=== PATIENT | female | born 1980 | race Caucasian/White ===

== ENCOUNTER 2016-08-14 06:00 | Inpatient (IN) ==
[2016-08-14] MEDS ORDERED: BUTORPHANOL 2 MG/ML VIAL IV PRN (06:08)
[2016-08-14] MEDS ORDERED: MEPERIDINE 50 MG/1 ML VIAL IV PRN (06:08)
[2016-08-14] MEDS ORDERED: ONDANSETRON 4 MG/2 ML VIAL IV PRN ×2 (06:08→12:51)
[2016-08-14] MEDS ORDERED: OXYTOCIN/LR 20 UNIT/1,000 ML BAG IV SCH (06:30)
[2016-08-14] MEDS: LACTATED RINGERS 1,000 ML IV SCH ×3 (06:30→20:05)
[2016-08-14 06:36] LABS: Basophils % 0.3 % (0.0-0.8); Eosinophils # 0.3 10*3/uL (0.0-0.87); Eosinophils % 2.6 % (0.00-10.9); Hemoglobin 12.9 GM/DL (12.0-16.0); Immature Granulocytes % 0.6 %; Immature Granulocytes Absolute 0.06 #; Lymphocytes # 2.3 10*3/uL (1.4-4.0); Lymphocytes % 24.3 % (21.3-54.2); Mean Corpuscular HGB Conc 34.9 GM/DL (32-36); Mean Corpuscular Hemoglobin 33 PG (27-34); Mean Corpuscular Volume 94.1 FL (87-102); Mean Platelet Volume 11.3 FL (9.6-12.0); Monocytes # 0.6 10*3/uL (0.11-0.8); Monocytes % 6.3 % (1.7-12.7); Neutrophils # 6.3 10*3/uL (1.4-7.4); Neutrophils % 65.9 % (38.7-73.9); Platelet Count 205 T/CUMM (130-400); Red Blood Count 3.93 MC/CUMM (3.8-5.5); Red Cell Distribution Width 13.1 % (9.3-17.3); White Blood Count 9.6 T/CUMM (4-12)
[2016-08-14 06:57] LABS: INR 0.9; PT Patient Result 9.6 SECS
[2016-08-14 07:10] LABS: Albumin 2.9 G/DL (3.4-5.0); Bilirubin,Total 0.6 MG/DL (0.2-1.0); Osmolality,Calculated 272.7 MOS/KG (273-304); Potassium 3.8 MMOL/L (3.5-5.1); Total Protein 6.5 G/DL (6.4-8.3)
[2016-08-14] MEDS ORDERED: LACTATED RINGERS 1,000 ML IV ONE (08:44)
[2016-08-14] MEDS ORDERED: CITRIC ACID/SODIUM CITRATE 30 ML UDCUP PO ONE (08:44)
[2016-08-14] MEDS ORDERED: FAMOTIDINE 20 MG/2 ML VIAL IV ONE (08:44)
[2016-08-14] MEDS ORDERED: hydrOXYzine HCL 25 MG/1 ML VIAL IM PRN (08:45)
[2016-08-14] MEDS ORDERED: ePHEDrine 50 MG/ML AMP IV PRN (08:45)
[2016-08-14] MEDS ORDERED: fentaNYL 2 MCG/ROPIV 0.2% EPID 150 ML EPIDURAL SCH (08:45)
[2016-08-14] MEDS ORDERED: diphenhydrAMINE 50 MG/1 ML VIAL IV PRN ×2 (08:45)
[2016-08-14] MEDS ORDERED: PROMETHAZINE 25 MG/1 ML VIAL IM ONE (08:45)
--- NOTE | 2016-08-14 09:22 | OB/GYN History & Physical ---
History of Present Illness Chief complaint: For elective induction due to term . History of present illness: Ms. Gruber is a 36 year old female 3 para 1 AB 1 living 1. Her SURENDRA is 08/20/2016 for an estimated gestational age of 39 weeks. The patient presents for elective induction of labor due to term . The risk and benefits of been thoroughly discussed with this patient and significant other and plan of care has been discussed with Dr. Ace and all parties are in agreement plan. The [facility] and she received routine care and her course was uneventful. The patient had a previous vaginal delivery of a liveborn female that weighed 6 pounds and 14 ounces the patient reported preeclampsia with that patient also hemorrhage with the IC and had to have multiple blood transfusions after that delivery. labs: She is B+, serology is nonreactive, hepatitis B negative, HIV negative, rubella is immune, GBS culture is negative. Review of systems is negative with exception of above. Home Medications Medication Instructions Recorded Confirmed Type Multivitamin () [ 1 tablet PO DAILY 08/16/15 08/14/16 History Vitamin] Allergies Allergy/AdvReac Type Severity Reaction Status Date / Time latex Allergy Severe rash sob Verified 08/03/16 12:43 Sulfa (Sulfonamide Allergy Intermediate HIVES Verified 08/03/16 12:43 Antibiotics) 12 point system: reviewed and no additional remarkable complaints except as stated Medical,Surgical,& Family Hx - Medical History Neurology: No history of: Seizures HEENT: History of: HEENT Problems (closed reduction nasal fracture) Reproductive: History of: Complication (missed , preeclampsia , dic, hemmorage) Other: History of: Anesthesia Reactions (n/v), Miscellaneous Medical Problems ( VARICOSE VEIN SURGERY) - Surgical History Reproductive Surgeries: Surgical HX of;: Dilation and Curettage Additional Surgical History: Vein stripping in 2005. 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 - Constitutional Vitals: Vital Signs Temp Pulse Resp BP Pulse Ox 05/30/17 08:00 98.6 F 08/14/16 06:06 97.4 F L 83 20 152/98 100 - Antepartum / Post Antepartum Exam Cervix -Dilatation: 5 cm Effacement: 70% Station: -2 Rupture: Intact Presentation: Vertex Heart Rate: 140s-150s Breast: bilateral: normal Abdomen obstetrics: Present: bowel sounds normal Vagina: Present: normal moisture, discharge Uterus exam: Present: enlarged - Head Head exam: Present: normal inspection - Respiratory Respiratory exam: Present: clear to auscultation bilaterally - Cardiovascular Cardiovascular exam: Present: regular rate and rhythm - GI/Abdominal GI/Abdominal exam: Present: normal bowel sounds, soft - Extremities Exam Extremities exam: Present: normal inspection - Back Exam Back exam: Present: normal inspection - Neurological Exam Neurological exam: Present: alert, oriented X3 - Psychiatric Psychiatric exam: Present: normal affect, normal mood - Skin Skin exam: Present: normal color, warm Assessment and Plan (1) Term Status: Acute Assessment and plan: Admit IV fluids IV Pitocin per protocol Artificial rupture membranes Internal monitors if indicated Epidural anesthesia Anticipate Current Visit: Yes Results - Labs CBC & BMP: 08/14/16 06:19 08/14/16 06:19
[2016-08-14] MEDS ORDERED: OXYTOCIN/LR 30 UNIT/1,000 ML BAG IV ONE (11:34)
[2016-08-14] MEDS ORDERED: OXYTOCIN/LR 20 UNIT/1,000 ML BAG IV ONE (12:51)
[2016-08-14] MEDS ORDERED: LANOLIN 50% CREAM 0.3 OZ TUBE TOP PRN (12:51)
[2016-08-14] MEDS ORDERED: HYDROCORTISONE 2.5% RECTAL CREAM 30 GM TUBE TOP PRN (12:51)
[2016-08-14] MEDS ORDERED: oxyCODONE/ACETAMINOPHEN 5-325 MG TABLET PO PRN (12:51)
[2016-08-14] MEDS ORDERED: DIPH/TET/ACEL PERT BOOSTER VACCINE 0.5 ML VIAL IM ONE (12:51)
[2016-08-14] MEDS ORDERED: BENZOCAINE 20%/MENTHOL 0.5% SPRAY 56 GM CAN TOP PRN (12:51)
[2016-08-14] MEDS ORDERED: ACETAMINOPHEN 325 MG TABLET PO PRN (12:51)
[2016-08-14] MEDS ORDERED: BISACODYL 10 MG SUPP RECTAL PRN (12:51)
[2016-08-14] MEDS ORDERED: WITCH HAZEL PADS 100/JAR TOP PRN (12:51)
[2016-08-14] MEDS ORDERED: MEASLES/MUMPS/RUBELLA VACCINE 0.5 ML VIAL SUBCUT ONE (12:51)
[2016-08-14] MEDS ORDERED: RHO(D) IMMUNE GLOBULIN 300 MCG SYRINGE IM ONE (12:51)
[2016-08-14 13:06] LABS: Cord Venous Blood HCO3 21.4 MMOL/L; Cord Venous Blood PCO2 34.1 MMHG; Cord Venous Blood PO2 35.9 MMHG
[2016-08-14 14:05] LABS: Basophils % 0.2 % (0.0-0.8); Eosinophils # 0.1 10*3/uL (0.0-0.87); Eosinophils % 0.9 % (0.00-10.9); Hematocrit 31.6 VOL% (35.7-47.0); Hemoglobin 11.2 GM/DL (12.0-16.0); Immature Granulocytes % 0.4 %; Immature Granulocytes Absolute 0.04 #; Lymphocytes # 1.4 10*3/uL (1.4-4.0); Lymphocytes % 13.5 % (21.3-54.2); Mean Corpuscular HGB Conc 35.4 GM/DL (32-36); Mean Corpuscular Hemoglobin 33 PG (27-34); Mean Corpuscular Volume 92.4 FL (87-102); Mean Platelet Volume 11.8 FL (9.6-12.0); Monocytes # 0.4 10*3/uL (0.11-0.8); Neutrophils # 8.4 10*3/uL (1.4-7.4); Platelet Count 174 T/CUMM (130-400); Red Blood Count 3.42 MC/CUMM (3.8-5.5); White Blood Count 10.4 T/CUMM (4-12)
[2016-08-14 14:33] LABS: Albumin 2.3 G/DL (3.4-5.0); Bilirubin,Total 0.4 MG/DL (0.2-1.0); Calcium 8.5 MG/DL (8.5-10.1); Osmolality,Calculated 277.3 MOS/KG (273-304); Potassium 3.7 MMOL/L (3.5-5.1)
[2016-08-14] MEDS ORDERED: hydrALAZINE 20 MG/1 ML VIAL IV ONE ×2 (14:54→18:35)
[2016-08-14] MEDS: oxyCODONE/ACETAMINOPHEN 5-325 MG TABLET PO PRN (15:28)
[2016-08-14] MEDS: IBUPROFEN 800 MG TABLET PO PRN (17:05)
[2016-08-14 18:05] LABS: Basophils % 0.3 % (0.0-0.8); Eosinophils # 0.1 10*3/uL (0.0-0.87); Hematocrit 34.3 VOL% (35.7-47.0); Hemoglobin 11.9 GM/DL (12.0-16.0); Immature Granulocytes % 0.4 %; Immature Granulocytes Absolute 0.04 #; Lymphocytes # 1.6 10*3/uL (1.4-4.0); Lymphocytes % 14.7 % (21.3-54.2); Mean Corpuscular HGB Conc 34.7 GM/DL (32-36); Mean Corpuscular Hemoglobin 32 PG (27-34); Mean Corpuscular Volume 92.5 FL (87-102); Mean Platelet Volume 11.4 FL (9.6-12.0); Monocytes # 0.6 10*3/uL (0.11-0.8); Monocytes % 5.4 % (1.7-12.7); Neutrophils # 8.3 10*3/uL (1.4-7.4); Neutrophils % 78.2 % (38.7-73.9); Platelet Count 170 T/CUMM (130-400); Red Blood Count 3.71 MC/CUMM (3.8-5.5); Red Cell Distribution Width 12.9 % (9.3-17.3); White Blood Count 10.6 T/CUMM (4-12)
[2016-08-14 18:25] LABS: Albumin 2.2 G/DL (3.4-5.0); Bilirubin,Total 0.5 MG/DL (0.2-1.0); Calcium 8.2 MG/DL (8.5-10.1); Osmolality,Calculated 276.4 MOS/KG (273-304); Potassium 3.8 MMOL/L (3.5-5.1); Total Protein 4.9 G/DL (6.4-8.3)
[2016-08-14 22:37] LABS: Basophils % 0.4 % (0.0-0.8); Eosinophils # 0.2 10*3/uL (0.0-0.87); Eosinophils % 1.9 % (0.00-10.9); Hematocrit 31.8 VOL% (35.7-47.0); Hemoglobin 11.1 GM/DL (12.0-16.0); Immature Granulocytes % 0.3 %; Immature Granulocytes Absolute 0.03 #; Lymphocytes % 20.6 % (21.3-54.2); Mean Corpuscular HGB Conc 34.9 GM/DL (32-36); Mean Corpuscular Hemoglobin 32 PG (27-34); Mean Corpuscular Volume 91.9 FL (87-102); Mean Platelet Volume 11.7 FL (9.6-12.0); Monocytes # 0.5 10*3/uL (0.11-0.8); Neutrophils % 71.8 % (38.7-73.9); Platelet Count 155 T/CUMM (130-400); Red Blood Count 3.46 MC/CUMM (3.8-5.5); White Blood Count 9.7 T/CUMM (4-12)
[2016-08-14 23:12] LABS: Bilirubin,Total 0.4 MG/DL (0.2-1.0); Osmolality,Calculated 275.5 MOS/KG (273-304); Potassium 3.6 MMOL/L (3.5-5.1); Total Protein 4.5 G/DL (6.4-8.3); Uric Acid 6.5 MG/DL (2.6-6.0)
[2016-08-15 06:49] LABS: Basophils % 0.5 % (0.0-0.8); Eosinophils # 0.3 10*3/uL (0.0-0.87); Eosinophils % 3.4 % (0.00-10.9); Hematocrit 32.9 VOL% (35.7-47.0); Hemoglobin 11.3 GM/DL (12.0-16.0); Immature Granulocytes % 0.5 %; Immature Granulocytes Absolute 0.04 #; Lymphocytes % 24.4 % (21.3-54.2); Mean Corpuscular HGB Conc 34.3 GM/DL (32-36); Mean Corpuscular Hemoglobin 32 PG (27-34); Mean Corpuscular Volume 93.5 FL (87-102); Mean Platelet Volume 11.4 FL (9.6-12.0); Monocytes # 0.4 10*3/uL (0.11-0.8); Monocytes % 5.4 % (1.7-12.7); Neutrophils # 5.3 10*3/uL (1.4-7.4); Neutrophils % 65.8 % (38.7-73.9); Platelet Count 160 T/CUMM (130-400); Red Blood Count 3.52 MC/CUMM (3.8-5.5); Red Cell Distribution Width 13.3 % (9.3-17.3)
[2016-08-15] MEDS: DOCUSATE SODIUM 100 MG CAPSULE PO SCH ×3 (08:10→21:35)
[2016-08-15] MEDS: IBUPROFEN 800 MG TABLET PO PRN (08:10)
[2016-08-15] MEDS: LACTATED RINGERS 1,000 ML IV SCH (08:25)
[2016-08-15] MEDS: FUROSEMIDE 40 MG/4 ML VIAL IV PRN ×2 (08:26→18:00)
--- NOTE | 2016-08-15 09:51 | Anesthesia Post-Op ---
Anesthesia Post OP - Post Ansesthetic Evaluation Patient seen in post op: Yes Resp: within normal limits CV: within normal limits Mental: within normal limits Temp: within normal limits [id number]: within normal limits Nausea and Vomiting: within normal limits Pain: within normal limits
[2016-08-16] MEDS: oxyCODONE/ACETAMINOPHEN 5-325 MG TABLET PO PRN (02:25)
[2016-08-16 07:18] VITALS: BP 113/69
[2016-08-16] MEDS: DOCUSATE SODIUM 100 MG CAPSULE PO SCH (08:26)
--- NOTE | 2016-08-16 09:53 | OB/GYN Progress Note ---
Assessment and Plan (1) Term Status: Acute Assessment and plan: Admit IV fluids IV Pitocin per protocol Artificial rupture membranes Internal monitors if indicated Epidural anesthesia Anticipate Current Visit: Yes (2) Vaginal delivery Status: Acute Assessment and plan: Routine orders Current Visit: Yes [employer] - PN: Subj Interval history: Stable with no complaints bonding well with infant. Exam [employer] - Constitutional Vitals: Vital Signs Temp Pulse Resp BP Pulse Ox 08/16/16 07:17 98.2 F 72 18 113/69 99 08/16/16 04:00 98.1 F 76 18 136/78 98 08/16/16 00:00 98.8 F 70 18 106/59 97 08/15/16 20:00 97.8 F 83 18 126/90 99 08/15/16 15:27 97.8 F 76 20 127/81 98 08/15/16 11:10 98.1 F 75 20 113/82 98 08/15/16 10:15 97.4 F L 87 20 135/87 98 08/15/16 10:00 18 General appearance: no acute distress - Antepartum / Post Post Exam Breast: bilateral: normal Abdomen obstetrics: Present: bowel sounds normal Vulva: bilateral: normal Vagina: Present: normal moisture, discharge (I look) Uterus exam: Present: enlarged (Fundus firm and midline) Anus/Rectum: Present: normal perianal skin - Head Head exam: Present: normal inspection - Respiratory Respiratory exam: Present: clear to auscultation bilaterally - Cardiovascular Cardiovascular exam: Present: regular rate and rhythm - GI/Abdominal GI/Abdominal exam: Present: normal bowel sounds, soft - Extremities Exam Extremities exam: Present: normal inspection - Back Exam Back exam: Present: normal inspection - Neurological Exam Neurological exam: Present: alert, oriented X3 - Psychiatric Psychiatric exam: Present: normal affect, normal mood - Skin Skin exam: Present: normal color, warm Results - Labs CBC & BMP: 08/15/16 06:28 08/14/16 22:20
--- NOTE | 2016-08-16 10:03 | Discharge Summary ---
Hospital Course - Hospital Course Hospital Course: Ms. Gruber presented for elective induction of labor due to term . She subsequently delivered a viable infant with no complications. She has followed a normal course and she has done well. Her bleeding is minimal with no odor. Her perineum is intact. Her vital signs and lab values are stable. She is bonding well with her . She denies any headaches or shortness of breath. Her fundus is firm and midline. She will be discharged home prescriptions for pain and follow-up appointment in our office. Diagnosis - Discharge Diagnosis (1) Term Status: Acute (2) Vaginal delivery Status: Acute Specialty Discharge - Follow Up or Referrals Follow up with: Anali Ace MD [Physician] - 09/27/16 10:30 am Discharge Plan - Discharge Data Disposition: Disch To Home/Self Care Condition at Discharge: Stable Discharge Diet: advance to your usual diet, regular diet Activity: resume usual activities as tolerated Hygiene: may shower Weight Bearing at Discharge: weight bear as tolerated Driving: no restrictions Contact your physician if you experience:: fever over 101, pain uncontrolled by pain medications - Discharge Medications New NIFEdipine XL TAB [Procardia Xl] 30 mg PO DAILY #30 tablet Acetamin/Codeine 300-30 Tab [Tylenol/Codeine #3] 2 tablet PO Q4H PRN #30 tablet PRN Reason: Pain Mild To Moderate (1-7) Ibuprofen Tab [Motrin Tab] 800 mg PO Q6H PRN #45 tablet PRN Reason: Pain Moderate (4-7) No Action Multivitamin () [ Vitamin] 1 tablet PO DAILY - Follow Up or Referral Follow Up: Anali Ace MD [Physician] - 09/27/16 10:30 am - Forms/Instructions Exam - Constitutional Vitals: Period Temp Pulse Resp BP Sys/[place] Pulse Ox Last 24 Hr 97.4 F-98.8 F 70-87 18-20 106-136/59-90 97-99 General appearance: no acute distress - Head Head exam: Present: normal inspection - ENT ENT exam: Present: normal exam - Respiratory Respiratory exam: Present: clear to auscultation bilaterally - Cardiovascular Cardiovascular exam: Present: regular rate and rhythm - GI/Abdominal GI/Abdominal exam: Present: normal bowel sounds, soft - Extremities Exam Extremities exam: Present: normal inspection - Back Exam Back exam: Present: normal inspection - Neurological Exam Neurological exam: Present: alert, oriented X3 - Psychiatric Psychiatric exam: Present: normal affect, normal mood - Skin Skin exam: Present: normal color, warm Discharge Results Procedures and tests throughout hospitalization: Pending Orders 08/14/16 06:08 Urinalysis Routine DS: Provider Date of admission: 08/14/16 06:00 Primary care physician: . No PCP Attending physician on admission: Anali Ace MD Consults: 08/14/16 06:08 Consult to Anesthesiology [CONS] Routine Consulting Provider: Reason for Anesthesiology: Epidural Consult Comment: Epidural for pain managment 08/14/16 12:51 Consult to Grader Marker [CONS] Routine Consult Grader Marker: Breast Feeding Discharging clinician: Leeanna Canela CNM Expected date of discharge: 08/16/16
--- NOTE | 2016-11-12 07:30 | Operative Note ---
The patient was admitted on 08/14/16 discharged on 08/16/16. The patient underwent a planned induction of labor secondary to 39 weeks gestation. She received an epidural anesthetic. heart tone was category 1. Artificial rupture of membranes includes fluid. She delivered a viable female . Apgars were 9 at 1 minute and 9 at 5 minutes. Cord blood and cord gas was obtained. Three vessels were noted. Placenta was delivered without any complications. Blood loss is less than 300 cc. Mother and were stable. Blood pressure remains stable throughout her delivery process. She was subsequently taken to nursery and recovery room in stable condition. Bonding well with the infant as well. HORACE
== END 2016-08-16 13:05 | disposition home or self-care (01) | DRG 775 ==
LOC: N.LD 06:00 → N.OB 08-15 10:07
PROVIDERS: ADMIT Obstetrics & Gynecology; ATTEND Obstetrics & Gynecology